=== PATIENT | female | born 1940 | race Caucasian/White ===

== ENCOUNTER → 2018-07-07 11:45 | Outpatient (CLI) | payer MEDICARE, SELFPAY | PROVIDERS: Family Provider Family Medicine; PCP Family Medicine; Visit Provider Family Medicine | DX: Z12.31 Encounter for screening mammogram for malignant neoplasm of breast (principal) | CPT/HCPCS: 77063; 77067 ==

== ENCOUNTER → 2018-07-15 09:21 | Outpatient (CLI) | payer MEDICARE, SELFPAY ==
--- NOTE | 2018-07-15 09:22 | US_ITS ---
STUDY: ULTRASOUND BREAST - RIGHT REASON FOR EXAM: Female, 77 years old. Abnormal screening mammogram. TECHNIQUE: Axial and longitudinal images of the RIGHT breast were performed with a high resolution ultrasound transducer. COMPARISON: Comparison is made with prior mammogram dated July 07, 2018. FINDINGS: RIGHT Breast: There is evidence of dense breast tissue. No solid or cystic mass is seen. IMPRESSION: No sonographic abnormality is present. ASSESSMENT CATEGORY: BIRADS Category 1: Negative. A letter regarding these results will be sent to the patient by the facility within 30 days. Electronically Signed: Bao Jade MD at 10:38 EDT Tel [phone], Service support , STUDY: ULTRASOUND BREAST - LEFT REASON FOR EXAM: Female, 77 years old. Abnormal screening mammogram. TECHNIQUE: Axial and longitudinal images of the LEFT breast were performed with a high resolution ultrasound transducer. COMPARISON: Comparison is made with prior mammogram dated July 07, 2018. FINDINGS: LEFT Breast: The entire breast was examined by ultrasound. There is dense fibroglandular tissue. No solid or cystic mass lesion is seen. US/Breast Complete Bilateral IMPRESSION: Unremarkable sonographic examination of the left breast. ASSESSMENT CATEGORY: BIRADS Category 1: Negative. A letter regarding these results will be sent to the patient by the facility within 30 days. Electronically Signed: Bao Jade MD at 10:39 EDT Tel [phone], Service support ,
== END ==
PROVIDERS: Family Provider Family Medicine; PCP Family Medicine; Visit Provider Family Medicine
DX: R92.8 Other abnormal and inconclusive findings on diagnostic imaging of breast (principal)
CPT/HCPCS: 76641

== ENCOUNTER → 2018-09-07 09:34 | Outpatient (CLI) | payer MEDICARE, SELFPAY ==
[2018-09-07 12:46] LABS: Anion Gap 8 (5-15); BUN 10 mg/dL (7-18); BUN/Creat Ratio 14.3 RATIO (10-20); Calcium,Total 8.8 mg/dL (8.5-10.1); Chloride 103 mmol/L (98-107); Cholesterol 140 mg/dL (200); EST Glomerular Filtration Rate 86 mL/min (>60); Est Glom Filt Rate - Afr Amer 104 mL/min (>60); Glucose 88 mg/dL (74-106); High Density Lipoprotein 67 mg/dL; Potassium 4.2 mmol/L (3.5-5.1); Sodium Level 140 mmol/L (136-145); Triglycerides 70 mg/dL; Very Low Density Lipoprotein 14 mg/dL (5-40)
== END ==
PROVIDERS: Family Provider Family Medicine; PCP Family Medicine; Visit Provider Family Medicine
DX: I10 Essential (primary) hypertension (principal)
CPT/HCPCS: 36415; 80048; 80061

== ENCOUNTER → 2019-03-08 | Outpatient (CLI) | payer MEDICARE, SELFPAY ==
[2019-03-08 12:28] LABS: Anion Gap 8 (5-15); BUN 12 mg/dL (7-18); BUN/Creat Ratio 19.4 RATIO (10-20); Calcium,Total 8.7 mg/dL (8.5-10.1); Chloride 102 mmol/L (98-107); Cholesterol 176 mg/dL (200); Creatinine, Serum 0.62 mg/dL (0.55-1.02); EST Glomerular Filtration Rate 99 mL/min (>60); Est Glom Filt Rate - Afr Amer 119 mL/min (>60); Glucose 88 mg/dL (74-106); High Density Lipoprotein 58 mg/dL; Potassium 4.5 mmol/L (3.5-5.1); Sodium Level 138 mmol/L (136-145); Triglycerides 80 mg/dL; Very Low Density Lipoprotein 16 mg/dL (5-40)
== END | disposition home or self-care (01) ==
PROVIDERS: Family Provider Family Medicine; PCP Family Medicine; Referring Provider Family Medicine; Visit Provider Family Medicine
DX: I10 Essential (primary) hypertension (principal)
CPT/HCPCS: 36415; 80048; 80061

== ENCOUNTER → 2019-03-12 | Outpatient (CLI) | payer MEDICARE, SELFPAY ==
--- NOTE | 2019-03-12 12:56 | ART_ITS ---
Reason For Study: Atherosclerosis Procedure A bilateral lower extremity continuous wave Doppler with analog waveform analysis and ankle brachial indexes. Left Segmental Pressures Left brachial= 162mmHg. Left posterior tibial artery = 84mmHg. Left dorsalis pedis artery = 125mmHg. The left dorsalis pedis waveforms are monophasic. The left posterior tibial artery waveforms are monophasic. Right Segmental Pressures Right brachial= 147mmHg. Right posterior tibial artery = 91mmHg. Right dorsalis pedis artery = 86mmHg. The right dorsalis pedis waveforms are monophasic. The right posterior tibial artery waveforms are monophasic. Indices The right ankle brachial index by the dorsalis pedis is 0.53. The right ankle brachial index by the posterior tibial artery is 0.56. The left ankle brachial index by the dorsalis pedis is 0.77. The left ankle brachial index by the posterior tibial artery is 0.52. Interpretation Summary 1. right leg with moderate occlussive disease and an LISA 0.56 2. Left with mld occlissive disease and an LISA 0.77. Ordering Physician: Patrick Merchant Referring Physician: Reggie Self Performed By: Maribell Lindo RVT
--- NOTE | 2019-03-12 12:56 | CDU_ITS ---
Reason For Study: Atherosclerosis Rt. Velocities/BP Lt. Velocities/BP Prox CCA 75/11.3 cm/sec. Prox CCA 87.6/12.6 cm/sec. Mid CCA 149.9/27 cm/sec. Mid CCA 67.9/13.9 cm/sec. Dist CCA 193.8/29.2 cm/sec. Dist CCA 119.2/22.6 cm/sec. Prox ICA 228.7/26.7 cm/sec. Prox ICA 126.6/35.3 cm/sec. Mid ICA 97.4/17 cm/sec. Mid ICA 326.7/83.5 cm/sec. Dist ICA 91.9/24.3 cm/sec. Dist ICA 77.2/22.3 cm/sec. Rt. ICA/CCA = 1.5. Lt. ICA/CCA = 3.7. Prox ECA 125.7 cm/sec. Prox ECA 112/7.9 cm/sec. Rt. Vert. 37.7/9.1 cm/sec. Lt. Vert. 117/31.4 cm/sec. Right Extracranial There is heterogeneous, irregular atherosclerotic plaque noted in the right common carotid artery. There is heterogeneous, irregular atherosclerotic plaque noted in the right internal carotid artery. There is heterogeneous, irregular atherosclerotic plaque noted in the right external carotid artery. Antegrade flow is noted in the right vertebral artery. Left Extracranial There is heterogeneous, irregular atherosclerotic plaque noted in the left common carotid artery. There is heterogeneous, irregular atherosclerotic plaque noted in the left internal carotid artery. The left internal carotid artery is very tortuous. There is heterogeneous, smooth atherosclerotic plaque noted in the left external carotid artery. Antegrade flow is noted in the left vertebral artery. Procedure Carotid Duplex 18023. Exam performed in department. Interpretation Summary Moderate (50-69%) stenosis right extracranial internal carotid. Severe (>70%) stenosis left extracranial internal carotid. Flow within the vertebral arteries is antegrade bilaterally. Ordering Physician: Patrick Merchant Referring Physician: Reggie Self Performed By: Maribell Lindo RVT
--- NOTE | 2019-03-12 12:56 | ADU_ITS ---
Reason For Study: Atherosclerosis Right Velocities Left Velocities Ext. Iliac Artery, dist = 90.6 cm./sec. Ext Iliac Artery, dist = 121.5 cm./sec. Common Femoral Artery, mid = 101.5 cm./sec. Common Femoral Artery, mid = 179.2 cm./sec. Supf Femoral Artery, prox = 141.7 cm./sec. Supf. Femoral Artery, prox = 176.9 cm./sec. Supf Femoral Artery, mid = 203.7 cm./sec. Supf. Femoral Artery, mid = 121.9 cm./sec. Supf Femoral Artery, dist. = 316.1 cm./sec. Supf. Femoral Artery, dist = 135 cm./sec. Profunda Femoral Artery = 203.7 cm./sec. Profunda Femoral Artery = 72.3 cm./sec. Popliteal Artery, prox. = 124.2 cm./sec. Popliteal Artery, proximal, = 121.8 cm./sec. Popliteal Artery, mid = 94.2 cm./sec. Popliteal Artery, mid = 72 cm./sec. Popliteal Artery, dist = 86.9 cm./sec. Popliteal Artery, distal = 69.5 cm./sec. Post. Tibial Artery, prox = 54.5 cm./sec. Post. Tibial Artery, prox = 34.6 cm./sec. Post. Tibial Artery, mid = 140 cm./sec. Post Tibial Artery, mid = 20.4 cm./sec. Post. Tibial Artery, dist = 44.2 cm./sec. Post Tibial Artery distal not visualized. Peroneal Artery, prox = 395.2 cm./sec. Peroneal Artery, prox = 31 cm./sec. Peroneal Artery, mid = 71.5 cm./sec. Peroneal Artery, mid = 39.6 cm./sec. Peroneal Artery,dist = 44.1 cm./sec. Peroneal Artery,dist. = 42.4 cm./sec. Ant. Tibial Artery, prox = 141.8 cm./sec. Ant.Tibial Artery, prox = 49.5 cm./sec. Ant. Tibial Artery, mid = 55.4 cm./sec. Ant Tibial Artery, mid = 32.4 cm./sec. Ant. Tibial Artery, dist = 63 cm./sec. Ant. Tibial Artery, distal = 36 cm./sec. Procedure Exam performed in department. Interpretation Summary 1. right SFa iwth moderate to severe stenosis distally. 2. Mostly monophasic flow noted in tibials bilaterally. Ordering Physician: Patrick Merchant Referring Physician: Reggie Self Performed By: Maribell Lindo RVT
== END | disposition home or self-care (01) ==
PROVIDERS: Family Provider Family Medicine; PCP Family Medicine; Referring Provider Surgery Vascular Surgery; Visit Provider Surgery Vascular Surgery
DX: I65.23 Occlusion and stenosis of bilateral carotid arteries (principal); I70.211 Atherosclerosis of native arteries of extremities with intermittent claudication, right leg; I10 Essential (primary) hypertension; E78.00 Pure hypercholesterolemia, unspecified; M79.672 Pain in left foot; I77.1 Stricture of artery; I70.245 Atherosclerosis of native arteries of left leg with ulceration of other part of foot
CPT/HCPCS: 93880; 93922; 93925

== ENCOUNTER → 2020-04-03 12:37 | Outpatient (CLI) | payer MEDICARE, SELFPAY ==
[2019-10-01 08:20] VITALS: BMI 19.8
--- NOTE | 2020-04-03 12:50 | ART_ITS ---
Reason For Study: Atherosclerosis Procedure A bilateral lower extremity continuous wave Doppler with analog waveform analysis and ankle brachial indexes. Left Segmental Pressures Left brachial= 124mmHg. Left posterior tibial artery = 78mmHg. Left dorsalis pedis artery = 108mmHg. Left digit = 34 mmHg. The left dorsalis pedis waveforms are biphasic. The left posterior tibial artery waveforms are monophasic. Right Segmental Pressures Right brachial= 121mmHg. Right posterior tibial artery = 83mmHg. Right dorsalis pedis artery = 68mmHg. Right digit = 37 mmHg. The right dorsalis pedis waveforms are monophasic. The right posterior tibial artery waveforms are monophasic. Indices The right ankle brachial index by the dorsalis pedis is 0.55. The right ankle brachial index by the posterior tibial artery is 0.67. The right digital-brachial index is 0.30. The left ankle brachial index by the dorsalis pedis is 0.87. The left ankle brachial index by the posterior tibial artery is 0.63. The left digital-brachial index is 0.27. Interpretation Summary Bilateral monophasic flow except near biphasic in left DP. LISA 0.67 right and 0.87 left. DBI 0.3 and 0.27. Ordering Physician: Patrick Merchant Referring Physician: Reggie Self Performed By: Maribell Lindo RVT
--- NOTE | 2020-04-03 12:50 | CDU_ITS ---
Reason For Study: Atherosclerosis Rt. Velocities/BP Lt. Velocities/BP Prox CCA 63/12.1 cm/sec. Prox CCA 58.1/12.6 cm/sec. Mid CCA 169.1/24.1 cm/sec. Mid CCA 103.5/20 cm/sec. Dist CCA 191.7/26.8 cm/sec. Dist CCA 96.2/16.3 cm/sec. Bulb 207.8/36.5 cm/sec. Prox ICA 138.9/24.8 cm/sec. Prox ICA 161.4/21.5 cm/sec. Mid ICA 318.9/75.7 cm/sec. Mid ICA 112.2/29.3 cm/sec. Dist ICA 122.9/29.8 cm/sec. Dist ICA 158.8/39.6 cm/sec. Lt. ICA/CCA = 3.3. Rt. ICA/CCA = 1.0. Prox ECA 101.1/17.6 cm/sec. Prox ECA 171.7 cm/sec. Lt. Vert. 117.4/31.6 cm/sec. Rt. Vert. 52/6.9 cm/sec. Right Extracranial There is heterogeneous, irregular atherosclerotic plaque noted in the right common carotid artery. There is homogeneous, smooth atherosclerotic plaque noted in the right internal carotid artery. There is heterogeneous, irregular atherosclerotic plaque noted in the right external carotid artery. Antegrade flow is noted in the right vertebral artery. There is heterogeneous, irregular atherosclerotic plaque noted in the right bulb. Left Extracranial There is heterogeneous, irregular atherosclerotic plaque noted in the left common carotid artery. There is heterogeneous, irregular atherosclerotic plaque noted in the left internal carotid artery. The atherosclerotic plaque causes acoustic shadowing. The left external carotid artery is not well visualized. Antegrade flow is noted in the left vertebral artery. Procedure Carotid Duplex 60859. Exam performed in department. Interpretation Summary Moderate (50-69%) stenosis right extracranial internal carotid. Severe (>70%) stenosis left extracranial internal carotid. Flow within the vertebral arteries is antegrade bilaterally. Ordering Physician: Patrick Merchant Referring Physician: Reggie Self Performed By: Maribell Lindo RVT
--- NOTE | 2020-04-03 12:51 | ADU_ITS ---
Reason For Study: Atherosclerosis Right Velocities Left Velocities Ext. Iliac Artery, dist = 56.9 cm./sec. Ext Iliac Artery, dist = 111 cm./sec. Common Femoral Artery, mid = 75.7 cm./sec. Common Femoral Artery, mid = 143.9 cm./sec. Supf Femoral Artery, prox = 77.7 cm./sec. Supf. Femoral Artery, prox = 78 cm./sec. Supf Femoral Artery, mid = 114.2 cm./sec. Supf. Femoral Artery, mid = 130.6 cm./sec. Supf Femoral Artery, dist. = 172.5 cm./sec. Supf. Femoral Artery, dist = 81.5 cm./sec. Profunda Femoral Artery = 154.5 cm./sec. Profunda Femoral Artery = 84.6 cm./sec. Popliteal Artery, prox. = 97.9 cm./sec. Popliteal Artery, proximal, = 117.9 cm./sec. Popliteal Artery, mid = 50.4 cm./sec. Popliteal Artery, mid = 57.8 cm./sec. Popliteal Artery, dist = 41.5 cm./sec. Popliteal Artery, distal = 38 cm./sec. Post. Tibial Artery, prox = 38 cm./sec. Post. Tibial Artery, prox = 85.3 cm./sec. Post. Tibial Artery, mid = 45 cm./sec. Peroneal Artery, mid = 46.7 cm./sec. Peroneal Artery, mid = 118 cm./sec. Peroneal Artery,dist. = 45 cm./sec. Peroneal Artery,dist = 39.3 cm./sec. Ant.Tibial Artery, prox = 91.9 cm./sec. Ant. Tibial Artery, prox = 76 cm./sec. Ant Tibial Artery, mid = 18 cm./sec. Ant. Tibial Artery, dist = 11.9 cm./sec. No flow noted [employer] mid-distal, PeroA prox and ROMEL No flow noted [employer] distal, PeroA prox and ROMEL mid. distal. Procedure Exam performed in department. Interpretation Summary Bilateral wiht triphasic flow through popliteal arteries with no stenosis proximally. Bilateral tibials with segments occlusson and distal monophasic flow. Ordering Physician: Patrick Merchant Referring Physician: Reggie Self Performed By: Maribell Lindo RVT
== END ==
PROVIDERS: PCP Family Medicine; Referring Provider Surgery Vascular Surgery; Visit Provider Surgery Vascular Surgery
DX: I65.23 Occlusion and stenosis of bilateral carotid arteries (principal); I77.1 Stricture of artery; I70.211 Atherosclerosis of native arteries of extremities with intermittent claudication, right leg; I70.245 Atherosclerosis of native arteries of left leg with ulceration of other part of foot
CPT/HCPCS: 93880; 93922; 93925

== ENCOUNTER → 2020-10-30 09:38 | Outpatient (CLI) | payer MEDICARE, SELFPAY ==
[2019-10-01 08:20] VITALS: BMI 19.8
--- NOTE | 2020-10-30 09:42 | ADUL_ITS ---
Reason For Study: Atherosclerosis Right Velocities Ext. Iliac Artery, dist = 126 cm./sec. Common Femoral Artery, mid = 104.5 cm./sec. Supf Femoral Artery, prox = 49.9 cm./sec. Supf Femoral Artery, mid = 429.6 cm./sec. Supf Femoral Artery, dist. = 26.9 cm./sec. Profunda Femoral Artery = 215.3 cm./sec. Popliteal Artery, prox. = 27.4 cm./sec. Popliteal Artery, mid = 29.4 cm./sec. Popliteal Artery, dist = 30.9 cm./sec. Post. Tibial Artery, prox = 45.1 cm./sec. Post. Tibial Artery, mid = 20.9 cm./sec. Post. Tibial Artery, dist = 32.2 cm./sec. Peroneal Artery, prox = 28 cm./sec. Peroneal Artery,dist = 25.8 cm./sec. Ant. Tibial Artery, prox = 8.6 cm./sec. Ant. Tibial Artery, dist = 10.2 cm./sec. No flow noted in the right PeroA mid and ROMEL mid. Procedure Exam performed in department. Interpretation Summary Right femoral severe and then monophasic flow lower leg with peroneal and anterior tibial having occlussions. Ordering Physician: Patrick Merchant Referring Physician: Reggie Self Performed By: Maribell Lindo RVT
--- NOTE | 2020-10-30 09:42 | ART_ITS ---
Reason For Study: Atherosclerosis Procedure A bilateral lower extremity continuous wave Doppler with analog waveform analysis and ankle brachial indexes. Left Segmental Pressures Left brachial= 124mmHg. Left posterior tibial artery = 78mmHg. Left dorsalis pedis artery = 81mmHg. The left dorsalis pedis waveforms are monophasic. The left posterior tibial artery waveforms are monophasic. Right Segmental Pressures Right brachial= 116mmHg. Right posterior tibial artery = 31mmHg. Right dorsalis pedis artery = 23mmHg. The right dorsalis pedis waveforms are monophasic. The right posterior tibial artery waveforms are monophasic. Indices The right ankle brachial index by the dorsalis pedis is 0.19. The right ankle brachial index by the posterior tibial artery is 0.25. The left ankle brachial index by the dorsalis pedis is 0.65. The left ankle brachial index by the posterior tibial artery is 0.63. Interpretation Summary Right severe occlussive disease with LISA 0.25 and left moderate at 0.65. Ordering Physician: Patrick Merchant Referring Physician: Reggie Self Performed By: Maribell Lindo RVT
== END ==
PROVIDERS: PCP Family Medicine; Referring Provider Surgery Vascular Surgery; Visit Provider Surgery Vascular Surgery
DX: I70.213 Atherosclerosis of native arteries of extremities with intermittent claudication, bilateral legs (principal); I77.1 Stricture of artery; M79.672 Pain in left foot; E78.00 Pure hypercholesterolemia, unspecified; I11.9 Hypertensive heart disease without heart failure
CPT/HCPCS: 93922; 93926